=== PATIENT | male | born 1985 | race Caucasian/White ===

== ENCOUNTER 2020-04-24 17:27 | Outpatient (CLI) | payer OTHER | END 2020-04-24 17:28 | disposition home or self-care (01) | LOC: COV 17:27 | PROVIDERS: ATTEND Family Medicine | DX: M79.10 Myalgia, unspecified site (principal); J02.9 Acute pharyngitis, unspecified; Z20.828 Contact with and (suspected) exposure to other viral communicable diseases ==

== ENCOUNTER 2020-06-24 09:03 | Outpatient (CLI) | payer OTHER ==
[2020-06-24 15:06] LABS: CHOL/HDL RATIO 5.1 (<5.0); CHOLESTEROL 204 mg/dL; HDL CHOLESTEROL 40 mg/dL; LDL CHOLESTEROL,CALCULATED 143 mg/dL; LDL/HDL RATIO 3.6 (<3.6); VLDL CHOLESTEROL 21 mg/dL
[2020-06-24 16:06] LABS: H. PYLORIS ANTIGEN STL NEGATIVE (Negative)
== END 2020-06-24 09:04 | disposition home or self-care (01) ==
LOC: LAB.S 09:03
PROVIDERS: ATTEND Physician Assistant
DX: Z00.00 Encounter for general adult medical examination without abnormal findings (principal); R03.0 Elevated blood-pressure reading, without diagnosis of hypertension; R11.10 Vomiting, unspecified; R10.13 Epigastric pain; K21.9 Gastro-esophageal reflux disease without esophagitis; Z79.899 Other long term (current) drug therapy
CPT/HCPCS: 36415; 80061; 83721; 87338

== ENCOUNTER 2020-08-23 07:00 | Outpatient (CLI) | payer OTHER | END 2020-08-23 23:59 | disposition home or self-care (01) | LOC: COV 07:00 | PROVIDERS: ATTEND Physician Assistant | DX: Z01.812 Encounter for preprocedural laboratory examination (principal); Z20.822 Contact with and (suspected) exposure to COVID-19 ==